=== PATIENT | female | born 1985 | race Caucasian/White ===

== ENCOUNTER 2016-09-06 09:39 | Emergency (ER) | payer OTHER ==
[2016-09-06 10:01] VITALS: TEMP 98.1; BMI 23.9
--- NOTE | 2016-09-06 10:35 | PDOC ---
History of Present Illness - General Chief Complaint: Pain Stated Complaint: LEFT SHOULDER/SCAPULA, CHEST PAIN Time Seen by Provider: 09/06/16 09:41 History Source: Patient, Family Exam Limitations: No Limitations - History of Present Illness Initial Comments: 09/06/16 10:30 CHIEF COMPLAINT: Left chest pain post dry needle treatment for pain HISTORY OF PRESENT ILLNESS: This is a healthy 31-year-old woman who presents complaining of left sided chest pain. For the last few weeks she has been having some musculoskeletal pain in her left scapular and paraspinal region. She went to a pain doctor in [place] where she lives, and she has been getting dry needle injections to the area of the left rhomboid region to moderate the pain. The injections were helping initially. Her last injection was on , prior to coming to [place]. Immediately after the injection she felt somewhat unwell, and she said she had a taste of blood in her mouth. Also noted some pain with movement and some pain on very deep breathing at the end of the deep breath. There has been no cough. There is no hemoptysis. There is no fever. There is no shortness of breath. There is no dizziness. REVIEW OF SYSTEMS: GENERAL/CONSTITUTIONAL: No fever or chills. No weakness. No weight change. + Patient did feel generally unwell immediately after her injection last . HEAD, EYES, EARS, NOSE AND THROAT: No change in vision. No ear pain or discharge. No sore throat. CARDIOVASCULAR: No chest pain or shortness of breath. RESPIRATORY: No cough, wheezing, or hemoptysis. + Positive mild left chest pain on deep inspiration at the end of inspiration. GASTROINTESTINAL: No nausea, vomiting, diarrhea or constipation. No rectal bleeding. GENITOURINARY: No dysuria, frequency, or change in urination. MUSCULOSKELETAL: + Positive left scapular and trapezius region pain. Otherwise no muscular pain. SKIN AND BREASTS: No rash or easy bruising. NEUROLOGIC: No headache, vertigo, loss of consciousness, or loss of sensation. PSYCHIATRIC: No depression or anxiety. ENDOCRINE: No increased thirst. No abnormal weight change. HEMATOLOGIC/LYMPHATIC: No anemia, easy bleeding, or history of blood clots. ALLERGIC/IMMUNOLOGIC: No hives or skin allergy. No latex allergy. Past History - Past Medical History Allergies/Adverse Reactions: Allergies Allergy/AdvReac Type Severity Reaction Status Date / Time No Known Allergies Allergy Verified 09/06/16 09:40 Home Medications: Ambulatory Orders NK [No Known Home Medication] 09/06/16 Cardiac Disorders: No Other medical history: DENIES - Psycho/Social/Smoking Cessation Hx Anxiety: No Suicidal Ideation: No Smoking History: Never smoked Hx Alcohol Use: ("moderate") Substance Use Type: None *Physical Exam - Vital Signs Last Vital Signs Temp Pulse Resp BP Pulse Ox 98.1 F 76 18 133/97 100 09/06/16 09:40 09/06/16 09:40 09/06/16 09:40 09/06/16 09:40 09/06/16 09:40 - Physical Exam Comments: 09/06/16 10:35 GENERAL: The patient is awake, alert, and fully oriented, in no acute distress. She appears well. HEAD: Normal with no signs of trauma. EYES: Pupils equal, round and reactive to light, extraocular movements intact, sclera anicteric, conjunctiva clear. ENT: Ears normal, nares patent, oropharynx clear without exudates. Moist mucous membranes. NECK: Normal range of motion, supple without lymphadenopathy, JVD, or masses. LUNGS: Breath sounds equal, clear to auscultation bilaterally. No wheezes, and no crackles. No splinting on deep inspiration. HEART: Regular rate and rhythm, normal S1 and S2 without murmur, rub or gallop. ABDOMEN: Soft, nontender, normoactive bowel sounds. No guarding, no rebound. No masses. EXTREMITIES: Normal range of motion, no edema. No clubbing or cyanosis. No cords, erythema, or tenderness. Normal pulses throughout. NEUROLOGICAL: Cranial nerves II through XII grossly intact. Normal speech, normal gait. Normal sensation, strength, and range of motion of all joints in the left arm. PSYCH: Normal mood, normal affect. SKIN: Warm, Dry, normal turgor, no rashes or lesions noted. ED Treatment Course - LABORATORY CBC & Chemistry Diagram: 09/06/16 10:36 09/06/16 10:30 - RADIOLOGY Radiology Studies Ordered: Category Date Time Status CHEST PA & LAT [RAD] Stat Radiology 09/06/16 09:55 Taken Medical Decision Making - Medical Decision Making 09/06/16 10:37 Patient is a healthy 31-year-old woman, who presents complaining of left thoracic pain with breathing and movement after receiving a dry injection for left rhomboid and scapular pain. The injection was 4 days ago. The pain is mild at this point. On examination, the lungs are clear, and the musculoskeletal examination is normal. Initial impression: Musculoskeletal pain versus pleuritic pain. Chest x-ray PA and lateral ordered. PA and lateral views of the chest were reviewed by me. There is a small left pleural effusion. There is no pneumothorax. There is no infiltrate. Impression: Possible small vascular injury secondary to needle injection leading to minor left hemothorax. No evidence of pneumothorax. Patient will have laboratory workup to evaluate for possible anemia. 09/06/16 11:55 CBC is normal with no signs of acute blood loss anemia. Chemistry is also normal. Patient continues to feel well. Impression: Small left sided pleural effusion, with onset of left-sided pain immediately following dry needle therapy for musculoskeletal pain 4 days ago. The most likely explanation would be a small injury to a blood vessel causing left-sided pleural effusion from blood. Patient's hemoglobin is normal. Her pain is mild. She is planning to return to [place] where she lives in a few more days. I have recommended Tylenol for pain, with follow-up chest x-ray in [place] next week. Patient is aware that a repeat chest x-ray is imperative to demonstrate resolution and to rule out other types of pathology. *DC/Admit/Observation/Transfer Diagnosis at time of Disposition: Pleural effusion on left - Discharge Dispostion Disposition: HOME Condition at time of disposition: Stable Admit: No - Patient Instructions Printed Discharge Instructions: Pleural Effusion Additional Instructions: Today you were evaluated for left-sided chest pain following a dry needle injection 4 days ago. Your chest x-ray shows a small left pleural effusion, meaning that there is a small collection of fluid around the left lung. This most likely is the result of a minor injury to a blood vessel at the time of the dry needle injection. If that is the case, this will likely resolve on its own over the next week or 2. It is imperative that you follow up with the doctor when you return to [place] to have a follow-up chest x-ray to show that there has been resolution of the pleural fluid. Take acetaminophen as needed for pain. Return to the emergency department for any severe symptoms such as difficulty breathing.
[2016-09-06 11:17] LABS: BASOPHIL 0.7 % (0-2.0); EOSINOPHIL 1.9 % (0-4.5); MCH 30.6 pg (25.7-33.7); MEAN PLT VOLUME 8.8 fl (7.5-11.1); NEUTROPHILS 62.6 % (42.8-82.8); PLATELET COUNT 354 K/MM3 (134-434); RDW 12.1 % (11.6-15.6)
[2016-09-06 11:31] LABS: ALBUMIN 4.5 g/dl (3.5-5.0); ALK PHOS 51 U/L (32-92); ANION GAP 9 (8-16); BILIRUBIN,TOTAL 0.6 mg/dl (0.2-1.0); CALCIUM 9.8 mg/dl (8.4-10.2); CO2 28 mmol/L (22-28); CREATININE 0.7 mg/dl (0.6-1.3); GLUCOSE,RANDOM 87 mg/dl (74-106); SGOT/AST 23 U/L (10-42); SGPT/ALT 12 U/L (10-40); TOT PROT 7.1 g/dl (6.4-8.3)
[2016-09-06 11:32] LABS: COCKROFT - GAULT NT
[2016-09-06 12:06] VITALS: BP 117/84; PULSE 58
== END 2016-09-06 12:10 | disposition home or self-care (01) ==
LOC: FER 09:39
DX: J90 Pleural effusion, not elsewhere classified (principal)
CPT/HCPCS: 36415; 71020-TC; 80053; 85025; 99285-25